=== PATIENT | female | born 1975 | race Caucasian/White ===

== ENCOUNTER 2018-05-13 23:36 | Inpatient (IN) | payer SELFPAY ==
--- NOTE | 2018-05-13 23:49 | PDOC ---
History of Present Illness - General Chief Complaint: Wound Stated Complaint: Cellulitis on the abdomen Time Seen by Provider: 05/13/18 23:49 - History of Present Illness Initial Comments: 05/14/18 00:15 42 year old female reports that she has redness and pain to her abdomen worsening over the last 3 days with tmax 100.5 at home today. patient reports rubbing the area with alcohol and erythema got worse. Prior to the rash start ing on her abdomen patient was wearing a girdle while working out. Past History - Past Medical History Allergies/Adverse Reactions: Allergies Allergy/AdvReac Type Severity Reaction Status Date / Time No Known Allergies Allergy Verified 05/13/18 23:45 Home Medications: Ambulatory Orders Amoxicillin/Potassium Clav [Augmentin 875-125 Tablet] 1 each PO BID #14 tablet 06/05/14 Oxycodone HCl/Acetaminophen [Percocet 5-325 mg Tablet -] 1 - 2 tab PO Q6H PRN # 12 tab 06/05/14 Asthma: No Cancer: No Cardiac Disorders: No COPD: No Diabetes: No HTN: No Seizures: No Thyroid Disease: No Other medical history: vitiligo - Suicide/Smoking/Psychosocial Hx Smoking Status: No Smoking History: Never smoked Have you smoked in the past 12 months: No Number of Cigarettes Smoked Daily: 0 Information on smoking cessation initiated: No Hx Alcohol Use: No Drug/Substance Use Hx: No Substance Use Type: None Hx Substance Use Treatment: No Review of Systems - Review of Systems Able to Perform ROS?: Yes Is the patient limited Citizen Of [place] proficient: No Constitutional: Yes: Chills, Fever Integumentary: Yes: Erythema, Rash *Physical Exam - Vital Signs Last Vital Signs Temp Pulse Resp BP Pulse Ox 98.4 F 85 18 157/87 100 05/13/18 23:41 05/13/18 23:41 05/13/18 23:41 05/13/18 23:41 05/13/18 23:41 - Physical Exam General Appearance: Yes: Appropriately Dressed Gastrointestinal/Abdominal: positive: Other (dermatitis across abdomen . no pustules or fluctuant mass noted. skin warm to touch with increased tenderness to LUQ area, ) Musculoskeletal: positive: Normal Inspection Integumentary: positive: Normal Color, Dry, Warm ED Treatment Course - LABORATORY CBC & Chemistry Diagram: 05/14/18 00:05/14/18 00:21 Medical Decision Making - Medical Decision Making A; cellulitis P: labs blood culture lactic acid IV antibiotics 05/14/18 02:50 patient placed on observation. patient signed out to Dr Ritter/ Dr. bhatia *DC/Admit/Observation/Transfer Diagnosis at time of Disposition: Cellulitis Qualifiers: Site of cellulitis: trunk Site of cellulitis of trunk: abdominal wall Qualified Code(s): L03.311 - Cellulitis of abdominal wall Contact dermatitis Qualifiers: Contact dermatitis type: unspecified Contact dermatitis trigger: unspecified trigger Qualified Code(s): L25.9 - Unspecified contact dermatitis, unspecified cause - Discharge Dispostion Decision to Admit order: Yes - Referrals - Patient Instructions - Post Discharge Activity
[2018-05-14] MEDS ORDERED: SODIUM CHLORIDE 1,000 ML IV STA (00:11)
[2018-05-14 00:51] LABS: BASO % 0.5 % (0-2.0); EOS % 4.5 % (0-4.5); HEMATOCRIT 33.4 % (32.4-45.2); HEMOGLOBIN 11.9 GM/dL (10.7-15.3); LYMPH % 36.3 % (8-40); MCHC 35.7 g/dl (32.0-36.0); MEAN CELL VOLUME 81.4 fl (80-96); MEAN PLT VOLUME 8.4 fl (7.5-11.1); MONO % 9.6 % (3.8-10.2); NEUT % 49.1 % (42.8-82.8); PLATELET COUNT 246 K/MM3 (134-434); RDW 13.9 % (11.6-15.6); WHITE BLOOD COUNT 5.7 K/mm3 (4.0-10.0)
[2018-05-14 01:13] LABS: ALBUMIN 3.7 g/dl (3.4-5.0); ANION GAP 9 MMOL/L (8-16); BLOOD UREA NITROGEN 18 mg/dL (7-18); CALCIUM 8.6 mg/dL (8.5-10.1); CHLORIDE 104 mmol/L (98-107); CO2 25 mmol/L (21-32); GLUCOSE,RANDOM 100 mg/dL (74-106); POTASSIUM 4.2 mmol/L (3.5-5.1); SODIUM 137 mmol/L (136-145)
[2018-05-14 01:14] LABS: ALK PHOS 96 U/L (45-117); BILIRUBIN,TOTAL 0.3 mg/dL (0.2-1); SGOT/AST 22 U/L (15-37); SGPT/ALT 26 U/L (13-61)
[2018-05-14 01:30] LABS: URINE APPEARANCE CLEAR; URINE BILIRUBIN NEGATIVE (<2.0 mg/dL); URINE COLOR COLORLESS; URINE GLUCOSE (UA) NEGATIVE (NEGATIVE); URINE KETONE NEGATIVE (NEGATIVE); URINE LEUK ESTERASE NEGATIVE (NEGATIVE); URINE NITRITE NEGATIVE (NEGATIVE); URINE PROTEIN NEGATIVE (NEGATIVE); URINE UROBILINOGEN NEGATIVE mg/dL (0.2-1.0)
[2018-05-14] MEDS ORDERED: PIPERACILLIN/TAZOBACTAM 4.5 GM VIAL IVPB ONE (01:31)
[2018-05-14] MEDS ORDERED: VANCOMYCIN 1 GRAM (PRE-DOCKED) 1,000 MG/250 ML BAG IVPB ONE ×2 (01:31→03:50)
[2018-05-14] MEDS ORDERED: KETOROLAC TROMETHAMINE 30 MG/1 ML VIAL IVPUSH ONE (01:37)
--- NOTE | 2018-05-14 02:18 | PN ---
Teaching Attending Note Name of Resident: Noé Pulido ATTENDING PHYSICIAN STATEMENT I saw and evaluated the patient. I reviewed the resident's note and discussed the case with the resident. I agree with the resident's findings and plan as documented. SUBJECTIVE: Patient is a 42 year old woman with history of vitiligo who presents with redness and pain to her abdominal wall worsening over the last 3 days with tmax 100.5 at home today. She reports rubbing the area with alcohol and the erythema got worse. Prior to the rash starting on her abdomen patient was wearing a girdle while working out. OBJECTIVE: Alert Vital Signs Period Temp Pulse Resp BP Sys/Delcid Pulse Ox Last 24 Hr 98.4 F 85 18 157/87 100 HEENT: No Jaundice, eye redness or discharge, PERRLA, EOMI. Normocephalic, atraumatic. External ears are normal and hearing is grossly intact. No nasal discharge. Neck: Supple, nontender. No palpable adenopathy or thyromegaly. No JVD Chest: Good effort. Clear to auscultation and percussion. Heart: Regular. No S3, rub or murmur Abdomen: Not distended, soft; extensive abdominal wall erythema extending from left to right flank, tender; no HSM. No rebound or guarding. Normoactive bowel sounds. Ext: Peripheral pulses intact. No leg edema. Skin: Warm and dry. No petechiae, rash or ecchymosis. Neuro: Alert. Oriented x3. CN 2-12 grossly intact. Sensation grossly intact in all four extremities and DTR are symmetric. Laboratory Results - last 24 hr 05/14/18 05/14/18 05/14/18 00:21 00:21 00:21 WBC 5.7 RBC 4.10 Hgb 11.9 Hct 33.4 MCV 81.4 MCH 29.0 D MCHC 35.7 RDW 13.9 D Plt Count 246 MPV 8.4 Absolute Neuts (auto) 2.8 Neutrophils % 49.1 D Lymphocytes % 36.3 D Monocytes % 9.6 Eosinophils % 4.5 D Basophils % 0.5 Nucleated RBC % 0 Sodium 137 Potassium 4.2 Chloride 104 Carbon Dioxide 25 Anion Gap 9 BUN 18 Creatinine 1.0 Creat Clearance w eGFR > 60 Random Glucose 100 Lactic Acid Calcium 8.6 Total Bilirubin 0.3 AST 22 ALT 26 Alkaline Phosphatase 96 Total Protein 7.0 Albumin 3.7 Serum , Qual Negative Urine Color Urine Appearance Urine pH Ur Specific [place] Urine Protein Urine Glucose (UA) Urine Ketones Urine Blood Urine Nitrite Urine Bilirubin Urine Urobilinogen Ur Leukocyte Esterase Urine WBC (Auto) Urine RBC (Auto) 05/14/18 05/14/18 00:21 01:21 WBC RBC Hgb Hct MCV MCH MCHC RDW Plt Count MPV Absolute Neuts (auto) Neutrophils % Lymphocytes % Monocytes % Eosinophils % Basophils % Nucleated RBC % Sodium Potassium Chloride Carbon Dioxide Anion Gap BUN Creatinine Creat Clearance w eGFR Random Glucose Lactic Acid 1.0 Calcium Total Bilirubin AST ALT Alkaline Phosphatase Total Protein Albumin Serum , Qual Urine Color Colorless Urine Appearance Clear Urine pH 6.0 Ur Specific [place] 1.004 L Urine Protein Negative Urine Glucose (UA) Negative Urine Ketones Negative Urine Blood 1+ H Urine Nitrite Negative Urine Bilirubin Negative Urine Urobilinogen Negative Ur Leukocyte Esterase Negative Urine WBC (Auto) None Urine RBC (Auto) <1 ASSESSMENT AND PLAN: 1. Abdominal wall cellulitis - Likely started out as contact dermatitis, then complicated by cellulitis. Do blood cultures and start Ancef 1 gm IV q 8 hours. Apply topical antipruritic cream. Consult ID. 2. Obesity - Will provide patient all the necessary assistance, counseling and positive reinforcement to facilitate weight loss. Consult sat math tutor. 3. DVT prophylaxis - Lovenox 40 mg SQ q 24 hours. 4. Advance directives - Full code
[2018-05-14] MEDS ORDERED: PIPERACILLIN/TAZOB 4.5 GM 4.5 GM/100 ML BAG IVPB ONE (02:51)
[2018-05-14] MEDS ORDERED: KETOROLAC TROMETHAMINE 30 MG/1 ML VIAL ONE (02:51)
[2018-05-14] MEDS ORDERED: KETOROLAC TROMETHAMINE 15 MG/ML VIAL IVPUSH PRN (03:07)
--- NOTE | 2018-05-14 03:31 | HP ---
CHIEF COMPLAINT: Painful Abdominal Rash PCP: none HISTORY OF PRESENT ILLNESS: 42 yo Female with no significant PMH evaluated for worsening painful abdominal rash for 3 days. She states the rash began on her right side and was initially itchy, though expanded across her abdomen to the left side and has now become quite tender. She had some leftover amoxicillin which she took for 2 days with no improvement. She also endorses scrubbing the area with soap frequently in addition to rubbing alcohol across the surface of her abdomen. There was no improvement in the rash and when she noted a fever earlier, she decided to come in to the ED. She also endorses chills for the last few days as well. She denies headache, dizziness, SOB, cough, chest pain, abdominal pain (other than the noted superficial tenderness), n/v/d. ER course was notable for: (1) Vanc/Zosyn (2) Toradol 30 mg IV (3) Recent Travel: none PAST MEDICAL HISTORY: none PAST SURGICAL HISTORY: Social History: Smoking: occasional cigarettes (1-2 cigarettes per week) Alcohol: Socially Drugs: Denies Family History: Allergies No Known Allergies Allergy (Verified 05/13/18 23:45) HOME MEDICATIONS: Home Medications Medication Instructions Recorded Amoxicillin/Potassium Clav 1 each PO BID #14 tablet 06/05/14 [Augmentin 875-125 Tablet] Oxycodone HCl/Acetaminophen 1 - 2 tab PO Q6H PRN #12 tab 06/05/14 [Percocet 5-325 mg Tablet -] REVIEW OF SYSTEMS CONSTITUTIONAL: fever, chills Absent: , diaphoresis, generalized weakness, malaise, loss of appetite, weight change HEENT: Absent: rhinorrhea, nasal congestion, throat pain, throat swelling, difficulty swallowing, mouth swelling, ear pain, eye pain, visual changes CARDIOVASCULAR: Absent: chest pain, syncope, palpitations, irregular heart rate, lightheadedness , peripheral edema RESPIRATORY: Absent: cough, shortness of breath, dyspnea with exertion, orthopnea, wheezing, stridor, hemoptysis GASTROINTESTINAL: Absent: abdominal pain, abdominal distension, nausea, vomiting, diarrhea, constipation, melena, hematochezia GENITOURINARY: Absent: dysuria, frequency, urgency, hesitancy, hematuria, flank pain, genital pain MUSCULOSKELETAL: Absent: myalgia, arthralgia, joint swelling, back pain, neck pain SKIN: rash, itching Absent: , pallor HEMATOLOGIC/IMMUNOLOGIC: Absent: easy bleeding, easy bruising, lymphadenopathy, frequent infections ENDOCRINE: Absent: unexplained weight gain, unexplained weight loss, heat intolerance, cold intolerance NEUROLOGIC: Absent: headache, focal weakness or paresthesias, dizziness, unsteady gait, seizure, mental status changes, bladder or bowel incontinence PSYCHIATRIC: Absent: anxiety, depression, suicidal or homicidal ideation, hallucinations. PHYSICAL EXAMINATION Vital Signs - 24 hr 05/13/18 05/14/18 23:41 02:52 Temperature 98.4 F 99 F Pulse Rate 85 Pulse Rate [ 78 Right Radial] Respiratory 18 19 Rate Blood Pressure 157/87 Blood Pressure 104/66 [Right Arm] O2 Sat by Pulse 100 100 Oximetry (%) GENERAL: A&O, no acute distress HEAD: Normocephalic, atraumatic. EYES: PERRL, no scleral icterus EARS, NOSE, THROAT: oropharynx clear without exudates. Moist mucous membranes. NECK: supple without lymphadenopathy LUNGS: CTA b/l, no crackles or wheezes HEART: Regular rate and rhythm, normal S1 and S2 without murmur ABDOMEN: Patchy erythema with dry scaly skin diffusely from right flank across to the left flank, tender to palpation, normoactive bowel sounds, no increased warmth, no areas of induration, no drainage noted. MUSCULOSKELETAL: No bony deformities or tenderness. EXTREMITIES: 2+ pulses, warm, well-perfused. No peripheral edema. NEUROLOGICAL: Cranial nerves II-XII grossly intact. Normal speech. PSYCHIATRIC: Cooperative. Good eye contact. Appropriate mood and affect. Laboratory Results - last 24 hr 05/14/18 05/14/18 05/14/18 00:21 00:21 00:21 WBC 5.7 RBC 4.10 Hgb 11.9 Hct 33.4 MCV 81.4 MCH 29.0 D MCHC 35.7 RDW 13.9 D Plt Count 246 MPV 8.4 Absolute Neuts (auto) 2.8 Neutrophils % 49.1 D Lymphocytes % 36.3 D Monocytes % 9.6 Eosinophils % 4.5 D Basophils % 0.5 Nucleated RBC % 0 Sodium 137 Potassium 4.2 Chloride 104 Carbon Dioxide 25 Anion Gap 9 BUN 18 Creatinine 1.0 Creat Clearance w eGFR > 60 Random Glucose 100 Lactic Acid Calcium 8.6 Total Bilirubin 0.3 AST 22 ALT 26 Alkaline Phosphatase 96 Total Protein 7.0 Albumin 3.7 Serum , Qual Negative Urine Color Urine Appearance Urine pH Ur Specific [place] Urine Protein Urine Glucose (UA) Urine Ketones Urine Blood Urine Nitrite Urine Bilirubin Urine Urobilinogen Ur Leukocyte Esterase Urine WBC (Auto) Urine RBC (Auto) 05/14/18 05/14/18 00:21 01:21 WBC RBC Hgb Hct MCV MCH MCHC RDW Plt Count MPV Absolute Neuts (auto) Neutrophils % Lymphocytes % Monocytes % Eosinophils % Basophils % Nucleated RBC % Sodium Potassium Chloride Carbon Dioxide Anion Gap BUN Creatinine Creat Clearance w eGFR Random Glucose Lactic Acid 1.0 Calcium Total Bilirubin AST ALT Alkaline Phosphatase Total Protein Albumin Serum , Qual Urine Color Colorless Urine Appearance Clear Urine pH 6.0 Ur Specific [place] 1.004 L Urine Protein Negative Urine Glucose (UA) Negative Urine Ketones Negative Urine Blood 1+ H Urine Nitrite Negative Urine Bilirubin Negative Urine Urobilinogen Negative Ur Leukocyte Esterase Negative Urine WBC (Auto) None Urine RBC (Auto) <1 ASSESSMENT/PLAN: 42 yo Female with no significant PMH evaluated for worsening painful abdominal rash for 3 days. Painful Abdominal Rash -More likely contact dermatitis picture, less likely cellulitis -Vanc/Zosyn in the ED -Will start Ancef for now -Topical moisturizer, discussed with patient that rubbing alcohol likely dried out the skin further DVT Prophylaxis -early ambulation FEN -Fluids: none -Electrolytes: No electrolyte abnormalities, BMP in AM -Nutrition: Regular diet Disposition Observation Visit type - Emergency Visit Emergency Visit: Yes Care time: The patient presented to the Emergency Department on the above date and was hospitalized for further evaluation of their emergent condition. - New Patient This patient is new to me today: Yes Date on this admission: 05/14/18 - Critical Care Critical Care patient: No
[2018-05-14 04:15] LABS: INR 1.03 (0.83-1.09); PROTHROMBIN TIME (PATIENT) 12.2 SEC (9.7-13.0)
[2018-05-14 04:18] LABS: ACTIVATED PTT 26.1 SECONDS (25.2-36.5)
[2018-05-14 04:35] VITALS: BMI 33.1
--- NOTE | 2018-05-14 10:45 | HOSP ---
Subjective - Review of Symptoms Events since last encounter: reports fever at home. rash is burning and itching. she reports rash started in R falnk as small vesicles filled with clear fluid on Friday. she started putting alcohol and rubbing it hardly on her skin . the rash spread medially to her umbilical area and then crossed to other side. she took amoxicillin 250 mg bid from a [employer] [facility] without a prescription x 5 days now. PE: NAd Cv : RRR Lungs: CTAB ext : no edema Abd: soft, dry eczematous rash with slightly increased warmth on her flanks and abd with sattelite small lesions ( looks like dry vesicles ) . paraspinal lesions at same level with dry vesicles . no other skin lesions 1- Rash on Abd: lilkely eczema with superimposed infection. appearance was changed by using alcohol. - case d/w Dr. meadows - cefazolin - steroids topically - moisturizers - no concern for zoster 2- DVT Px Physical Examination Vital Signs: Vital Signs Temperature 98 F 05/14/18 04:23 Pulse Rate 62 05/14/18 04:23 Respiratory Rate 16 05/14/18 04:23 Blood Pressure 103/61 05/14/18 04:23 O2 Sat by Pulse Oximetry (%) 100 05/14/18 02:52 Labs: CBC, BMP 05/14/18 00:21 05/14/18 00:21
[2018-05-14] MEDS ORDERED: diphenhydrAMINE HCL 25 MG CAPSULE (FP) PO PRN (11:10)
--- NOTE | 2018-05-14 11:31 | CON.ID ---
Consult Consult Specialty:: infectious disease Referred by:: hospitalist - History of Present Illness Chief Complaint: abdominal rash, itching erythema History of Present Illness: 3 day history of abdominal rash with itching- started on the right side and spread across her abdomen to the left side has been scratchng it and putting alcohol on it took some amox as well for two days now notes it is very dry and uncomfortable +chills reports fever at home-100.5 wears a binder when she exercises no history of diabetes no surgery - History Source History Provided By: Patient Limitations to Obtaining History: No Limitations - Alcohol/Substance Use Hx Alcohol Use: No - Smoking History Smoking history: Never smoked Have you smoked in the past 12 months: No Aproximately how many cigarettes per day: 0 - Social History Usual Living Arrangement: With Child ADL: Independent Home Medications - Allergies Allergies/Adverse Reactions: Allergies Allergy/AdvReac Type Severity Reaction Status Date / Time No Known Allergies Allergy Verified 05/13/18 23:45 - Home Medications Home Medications: Ambulatory Orders Amoxicillin/Potassium Clav [Augmentin 875-125 Tablet] 1 each PO BID #14 tablet 06/05/14 Oxycodone HCl/Acetaminophen [Percocet 5-325 mg Tablet -] 1 - 2 tab PO Q6H PRN # 12 tab 06/05/14 Family Disease History - Family Disease History Family History: Denies Review of Systems - Review of Systems Constitutional: reports: Chills, Fever Eyes: reports: No Symptoms HENT: reports: No Symptoms Neck: reports: No Symptoms Cardiovascular: reports: No Symptoms Respiratory: reports: No Symptoms Gastrointestinal: reports: No Symptoms Genitourinary: reports: No Symptoms Physical Exam Vital Signs: Vital Signs Temperature 98 F 05/14/18 04:23 Pulse Rate 62 05/14/18 04:23 Respiratory Rate 16 05/14/18 04:23 Blood Pressure 103/61 05/14/18 04:23 O2 Sat by Pulse Oximetry (%) 100 05/14/18 02:52 Constitutional: Yes: Well Nourished, No Distress, Calm Eyes: Yes: Conjunctiva Clear HENT: Yes: Atraumatic, Normocephalic. No: Thrush Neck: Yes: Supple, Trachea Midline Cardiovascular: Yes: Regular Rate and Rhythm Respiratory: Yes: CTA Bilaterally Gastrointestinal: Yes: Normal Bowel Sounds, Soft. No: Tenderness, Epigastrium ...Rectal Exam: Yes: Deferred Extremities: Yes: WNL Edema: No Integumentary: Yes: Rash (shiny dry band like rash extending from right side of abdomen to the left, no vesicles) Neurological: Yes: Alert Labs: CBC, BMP 05/14/18 00:21 05/14/18 00:21 blood cultures pending Problem List - Problems (1) Contact dermatitis Code(s): L25.9 - UNSPECIFIED CONTACT DERMATITIS, UNSPECIFIED CAUSE Qualifiers: Contact dermatitis type: unspecified Contact dermatitis trigger: unspecified trigger Qualified Code(s): L25.9 - Unspecified contact dermatitis , unspecified cause (2) Cellulitis Code(s): L03.90 - CELLULITIS, UNSPECIFIED Qualifiers: Site of cellulitis: trunk Site of cellulitis of trunk: abdominal wall Qualified Code(s): L03.311 - Cellulitis of abdominal wall Assessment/Plan d/w hospitalist infected contact dermatitis continue ancef continue moisutrizer add topical steroids no binder Thanks
[2018-05-14] MEDS ORDERED: CEFAZOLIN 1 GM/D5W 1 GM/50 ML BAG IVPB SCH (12:15)
[2018-05-14] MEDS ORDERED: PT OWN MED DRAWER 7, Y5N ONE (13:55)
[2018-05-14] MEDS ORDERED: CEFAZOLIN 1 GM in DEXTROSE 5%-WATER - 50 ML IVPB SCH (14:01)
[2018-05-14] MEDS ORDERED: ceFAZolin SODIUM 1 GM VIAL ONE (15:43)
[2018-05-14] MEDS ORDERED: DEXTROSE 5%-WATER - 50 ML IVPB ONE (15:44)
[2018-05-14] MEDS: HEPARIN NA (PORCINE) 5,000 UNITS/ML 1ML VIAL SQ SCH ×2 (15:51→22:29)
[2018-05-14] MEDS: CEFAZOLIN 1 GM in DEXTROSE 5%-WATER - 50 ML IVPB SCH (17:57)
[2018-05-14] MEDS: HYDROCORTISONE 0.5% TOPICAL OINTMENT TUBE TP SCH (22:30)
[2018-05-14] MEDS: MINERAL OIL/PET HY-PHL TOPICAL OINTMENT 454 GM JAR TP SCH (22:31)
[2018-05-15] MEDS ORDERED: ceFAZolin SODIUM 1 GM VIAL ONE ×2 (02:13→08:37)
[2018-05-15] MEDS ORDERED: DEXTROSE 5%-WATER - 50 ML IVPB ONE ×2 (02:13→08:37)
[2018-05-15] MEDS: CEFAZOLIN 1 GM in DEXTROSE 5%-WATER - 50 ML IVPB SCH ×2 (02:56→09:18)
[2018-05-15] MEDS: HEPARIN NA (PORCINE) 5,000 UNITS/ML 1ML VIAL SQ SCH ×2 (05:28→15:00)
[2018-05-15 06:19] VITALS: TEMP 98.1
[2018-05-15] MEDS ORDERED: PT OWN MED DRAWER 7, Y5N ONE ×2 (06:40→14:29)
[2018-05-15 07:14] LABS: HEMATOCRIT 35.3 % (32.4-45.2); HEMOGLOBIN 12.5 GM/dL (10.7-15.3); MCH 29.3 pg (25.7-33.7); MCHC 35.5 g/dl (32.0-36.0); MEAN CELL VOLUME 82.4 fl (80-96); MEAN PLT VOLUME 8.2 fl (7.5-11.1); PLATELET COUNT 235 K/MM3 (134-434); RBC 4.28 M/mm3 (3.60-5.2); RDW 14.4 % (11.6-15.6); WHITE BLOOD COUNT 4.1 K/mm3 (4.0-10.0)
--- NOTE | 2018-05-15 07:35 | PN ---
Teaching Attending Note Name of Resident: Sera Mckeon ATTENDING PHYSICIAN STATEMENT I saw and evaluated the patient. I reviewed the resident's note and discussed the case with the resident. I agree with the resident's findings and plan as documented. SUBJECTIVE: Patient is comfortable with no acute distress. OBJECTIVE: Vital Signs Temperature 98.1 F 05/15/18 06:00 Pulse Rate 64 05/15/18 06:00 Respiratory Rate 18 05/15/18 06:00 Blood Pressure 88/68 L 05/15/18 06:00 O2 Sat by Pulse Oximetry (%) 98 05/15/18 03:00 GENERAL: A&O, no acute distress HEAD: NC, AT. EYES: PERRL, no scleral icterus EARS, NOSE, THROAT: oropharynx clear without exudates. Moist mucous membranes. NECK: supple without lymphadenopathy LUNGS: CTA b/l, no crackles or wheezes HEART: Regular rate and rhythm, normal S1 and S2 without murmur ABDOMEN: Patchy erythema with dry scaly skin diffusely from right flank across to the left flank. EXTREMITIES: 2+ pulses, warm, well-perfused. No peripheral edema. NEUROLOGICAL: Cranial nerves II-XII grossly intact. Normal speech. PSYCHIATRIC: Cooperative. Good eye contact. Appropriate mood and affect. CBCD WBC 4.1 K/mm3 (4.0-10.0) 05/15/18 06:30 RBC 4.28 M/mm3 (3.60-5.2) 05/15/18 06:30 Hgb 12.5 GM/dL (10.7-15.3) 05/15/18 06:30 Hct 35.3 % (32.4-45.2) 05/15/18 06:30 MCV 82.4 fl (80-96) 05/15/18 06:30 MCHC 35.5 g/dl (32.0-36.0) 05/15/18 06:30 RDW 14.4 % (11.6-15.6) 05/15/18 06:30 Plt Count 235 K/MM3 (134-434) 05/15/18 06:30 MPV 8.2 fl (7.5-11.1) 05/15/18 06:30 CMP Sodium 137 mmol/L (136-145) 05/14/18 00:21 Potassium 4.2 mmol/L (3.5-5.1) 05/14/18 00:21 Chloride 104 mmol/L (98-107) 05/14/18 00:21 Carbon Dioxide 25 mmol/L (21-32) 05/14/18 00:21 Anion Gap 9 MMOL/L (8-16) 05/14/18 00:21 BUN 18 mg/dL (7-18) 05/14/18 00:21 Creatinine 1.0 mg/dL (0.55-1.3) 05/14/18 00:21 Creat Clearance w eGFR > 60 (>60) 05/14/18 00:21 Random Glucose 100 mg/dL (74-106) 05/14/18 00:21 Calcium 8.6 mg/dL (8.5-10.1) 05/14/18 00:21 Total Bilirubin 0.3 mg/dL (0.2-1) 05/14/18 00:21 AST 22 U/L (15-37) 05/14/18 00:21 ALT 26 U/L (13-61) 05/14/18 00:21 Alkaline Phosphatase 96 U/L (45-117) 05/14/18 00:21 Total Protein 7.0 g/dl (6.4-8.2) 05/14/18 00:21 Albumin 3.7 g/dl (3.4-5.0) 05/14/18 00:21 Current Medications Generic Name Dose Route Start Last Admin Trade Name Freq PRN Reason Stop Dose Admin Diphenhydramine HCl 25 mg 05/14/18 11:10 05/14/18 12:05 Benadryl - PO 25 mg Q8H PRN Administration FOR ITCHING Emollient Ointment 1 applic 05/14/18 22:00 05/14/18 22:31 Aquaphor - TP 1 applic BID JUAN Administration Heparin Sodium (Porcine) 5,000 unit 05/14/18 14:00 05/15/18 05:28 Heparin - SQ 5,000 unit TID JUAN Administration Hydrocortisone 1 applic 05/14/18 22:00 05/14/18 22:30 Hytone 0.5% Ointment - TP 1 applic BID JUAN Administration Cefazolin Sodium 1 gm/ 50 mls @ 100 mls/hr 05/14/18 14:02 05/15/18 02:56 Dextrose IVPB 100 mls/hr Q8H-IV JUAN Administration Ketorolac Tromethamine 15 mg 05/14/18 03:07 Toradol Injection - IVPUSH 05/19/18 03:06 Q6H PRN PAIN LEVEL 6-10 Home Medications Medication Instructions Recorded Amoxicillin/Potassium Clav 1 each PO BID #14 tablet 06/05/14 [Augmentin 875-125 Tablet] Oxycodone HCl/Acetaminophen 1 - 2 tab PO Q6H PRN #12 tab 06/05/14 [Percocet 5-325 mg Tablet -] ASSESSMENT AND PLAN: Patient is a 42 yo Female with no significant PMHx of Vertiligo, evaluated for worsening painful abdominal rash for 3 days. # Abdominal Rash with cellulitis s/p Vanc/Zosyn in the ED, started on IV ancef will discharge the patient on oral keflex Topical HC 0.5% as needed, discussed with patient that rubbing alcohol likely dried out the skin further. DVT Px : Heparin sq
[2018-05-15 07:46] LABS: ANION GAP 5 MMOL/L (8-16); BLOOD UREA NITROGEN 11 mg/dL (7-18); CALCIUM 8.3 mg/dL (8.5-10.1); CHLORIDE 105 mmol/L (98-107); CO2 28 mmol/L (21-32); CREATININE 0.6 mg/dL (0.55-1.3); GLUCOSE,RANDOM 84 mg/dL (74-106); SODIUM 138 mmol/L (136-145)
[2018-05-15] MEDS: HYDROCORTISONE 0.5% TOPICAL OINTMENT TUBE TP SCH (09:19)
[2018-05-15] MEDS: MINERAL OIL/PET HY-PHL TOPICAL OINTMENT 454 GM JAR TP SCH (09:20)
--- NOTE | 2018-05-15 12:50 | DS ---
Physical Exam: SUBJECTIVE: Patient is a 42 y/o female with no past medical history who is here for cellulitis. Patient reports the itching and pain has subsided, she thinks the rash is getting better. She has no complaints. OBJECTIVE: Vital Signs Temperature 98.1 F 05/15/18 10:00 Pulse Rate 60 05/15/18 10:00 Respiratory Rate 16 05/15/18 10:00 Blood Pressure 104/59 L 05/15/18 10:00 O2 Sat by Pulse Oximetry (%) 100 05/15/18 11:00 PHYSICAL EXAM GENERAL: The patient is awake, alert, and fully oriented, in no acute distress. HEAD: Normal with no signs of trauma. LUNGS: Breath sounds equal, clear to auscultation bilaterally, no wheezes, no crackles, no accessory muscle use. HEART: Regular rate and rhythm, S1, S2 without murmur, rub or gallop. ABDOMEN: Soft, nontender, nondistended, normoactive bowel sounds, no guarding, no rebound, no hepatosplenomegaly, no masses. NEUROLOGICAL: . Normal speech, gait not observed. PSYCH: Normal mood, normal affect. SKIN: Large erythematous flat rash across abdomen, moving in from drawn line, not raised, few nunez of scaly dryness LABS CBC, BMP 05/15/18 06:30 05/15/18 06:30 HOSPITAL COURSE: Date of Admission:05/14/18 Patient presented to the ED with complaints of itching, burning, and rash across her abdomen. She was given Vanc and Zosyn in the ED. Infectious disease examined patient and placed her on Ancef for her cellulitis. Patient received 2 days of IV antibiotics. She will continue to take one week of Keflex 500 mg TID. Patient used hydrocortisone cream and moisturizers to be applied to rash and aid in the itching. Patient did no have a white count and has remained afebrile. Date of Discharge: 05/15/18 Minutes to complete discharge: 36 Discharge Summary Reason For Visit: CELLULITIS Condition: Good - Instructions Diet, Activity, Other Instructions: You came to the hospital for a rash and infection on your abdomen. We treated you with antibiotics. For the infection you will continue to take: Keflex 500 mg three times a day by mouth for one week For the rash continue to use: Hydrocortisone cream to be applied to the rash as needed Moisturizing agents to be applied to the rash as needed If you continue to have itching you should make an appointment with a promotions associate. You should follow up with your primary care doctor within one week. You should return to the Emergency Department if you the infection worsens, you have chest pain, shortness of breath, or fevers. Referrals: Efren Comer MD [Staff Physician] - Disposition: HOME - Home Medications Comprehensive Discharge Medication List: Ambulatory Orders Cephalexin Monohydrate [Keflex -] 500 mg PO TID 7 Days #21 capsule 05/15/18 Hydrocortisone 0.5% Cream [Hytone 0.5% Cream -] 1 applic TP DAILY #1 tube This patient is new to me today: Yes Date on this admission: 05/15/18 Emergency Visit: No Critical Care patient: No - Discharge Referral Referred to [facility] No
--- NOTE | 2018-05-15 13:35 | PN ---
Progress Note (short form) - Note Progress Note: seen earlier today with resident feels much better Vital Signs Period Temp Pulse Resp BP Sys/Delcid Pulse Ox Last 24 Hr 98.1 F-98.8 F 60-88 16-18 88-112/53-69 98-100 cor-rrr lungs clear abd - rash/erythema fading ext no edema CBC, BMP 05/15/18 06:30 05/15/18 06:30 Microbiology 05/14/18 00:21 Blood - Peripheral Venous Blood Culture - Preliminary NO GROWTH OBTAINED AFTER 24 HOURS, INCUBATION TO CONTINUE FOR 4 DAYS. 05/14/18 00:21 Blood - Peripheral Venous Blood Culture - Preliminary NO GROWTH OBTAINED AFTER 24 HOURS, INCUBATION TO CONTINUE FOR 4 DAYS. a/p cellulitis/contact dermatitis much improved d/w resident no objection to switch to po keflex for 7 days and topical steroids to continue should f/u with her PMD Problem List - Problems (1) Contact dermatitis Code(s): L25.9 - UNSPECIFIED CONTACT DERMATITIS, UNSPECIFIED CAUSE Qualifiers: Contact dermatitis type: unspecified Contact dermatitis trigger: unspecified trigger Qualified Code(s): L25.9 - Unspecified contact dermatitis , unspecified cause (2) Cellulitis Code(s): L03.90 - CELLULITIS, UNSPECIFIED Qualifiers: Site of cellulitis: trunk Site of cellulitis of trunk: abdominal wall Qualified Code(s): L03.311 - Cellulitis of abdominal wall
[2018-05-15 13:50] VITALS: BP 91/55; PULSE 66
== END 2018-05-15 15:08 | disposition home or self-care (01) | DRG 383 ==
LOC: JER 23:36 → J7W 05-14 02:15
PROVIDERS: ADMIT Internal Medicine; ATTEND Internal Medicine
DX: L03.311 Cellulitis of abdominal wall (principal); L25.9 Unspecified contact dermatitis, unspecified cause; E66.9 Obesity, unspecified; Z68.33 Body mass index [BMI] 33.0-33.9, adult
CPT/HCPCS: 36415; 80048; 80053; 81003; 81015; 83605; 84703; 85025; 85027; 85610; 85730; 87040; 99281-25; J1644; J7030